=== PATIENT | female | born 1945 | race American Indian/Alaskan Native ===

== ENCOUNTER 2019-03-22 15:38 | Emergency (ER) | payer MEDICARE ==
--- NOTE | 2019-03-22 15:59 | Event Note ---
ED Screening Note ED Screening Note: pt states she has had a pain the LUE that began yesterday states that it hurts to move no edema no erythema no CP no SOB no N/V no injury or fall no numbness or weakness states she has not seen a doctor in 4 years states she has borderline DM and HTN, is supposed to be on medication but is not no allergies to meds non smoker non drinker no drug use This initial assessment/diagnostic orders/clinical plan/treatment(s) is/are subject to change based on patients health status, clinical progression and re- assessment by fellow clinical providers in the ED. Further treatment and workup at subsequent clinical providers discretion. Patient/guardian urged not to elope from the ED as their condition may be serious if not clinically assessed and managed. Initial orders include: CP protocol
[2019-03-22 16:32] LABS: Basophils % (Auto) 0.7 % (0.0-1.8); Eosinophils % (Auto) 0.8 % (0.0-4.3); Hematocrit 40.2 % (30.3-42.9); Hemoglobin 13.7 gm/dl (10.1-14.3); Lymphocytes # (Auto) 2.4 K/mm3 (1.2-5.4); Mean Corpuscular HGB Conc 34 % (30-34); Mean Corpuscular Volume 94 fl (79-97); Monocytes # (Auto) 0.5 K/mm3 (0.0-0.8); Monocytes % (Auto) 9.4 % (0.0-7.3); Platelet Count 184 K/mm3 (140-440); Red Blood Count 4.27 M/mm3 (3.65-5.03); Red Cell Distribution Width 13.9 % (13.2-15.2)
[2019-03-22 16:35] LABS: Alanine Aminotransferase 13 units/L (7-56); Albumin 3.9 g/dL (3.9-5); BUN/Creatinine Ratio 14; Blood Urea Nitrogen 10 mg/dL (7-17); Calcium 9.7 mg/dL (8.4-10.2); Hemolysis Index 15
[2019-03-22 16:41] LABS: INR 0.93 (0.87-1.13)
[2019-03-22 16:42] LABS: Partial Thromboplastin Time 25.1 Sec. (24.2-36.6)
--- NOTE | 2019-03-22 16:45 | XRay Report ---
PROCEDURE: XR CHEST ROUTINE 2V TECHNIQUE: PA and lateral chest radiographs were obtained. HISTORY: Chest Pain COMPARISONS: None. FINDINGS: Heart: Normal. Mediastinum/Vessels: Atheromatous calcifications is of the thoracic aorta. Lungs/Pleural space: Normal. Bony thorax: No acute osseous abnormality. IMPRESSION: No acute cardiopulmonary disease. This document is electronically signed by Britney Mcduffie MD., March 22 2019 04:43:52 PM ET
--- NOTE | 2019-03-22 18:53 | Emergency Department Report ---
Blank Doc - Documentation Documentation: pt placed in fast track 36 with a monitor due to nurse shortage on the main si de, Dr. Tripp is aware, a MD will evaluate pt
[2019-03-22] MEDS ORDERED: ASPIRIN PO ONE (20:24)
[2019-03-22] MEDS ORDERED: DELTASONE PO ONE ×2 (20:24→21:25)
[2019-03-22] MEDS ORDERED: TYLENOL PO ONE (20:24)
[2019-03-22] MEDS ORDERED: CATAPRES PO ONE (20:25)
[2019-03-22 21:17] LABS: Bilirubin,Urine NEG (Negative); Blood,Urine MOD (Negative); Color,Urine Yellow (Yellow); Mucus,Urine 1+ /HPF; Protein,Urine <15 mg/dL mg/dL (Negative); Urobilinogen,Urine < 2.0 mg/dL (<2.0); WBC,Urine < 1.0 /HPF (0.0-6.0)
--- NOTE | 2019-03-22 21:27 | Cat Scan Report ---
PROCEDURE: CT UPPER EXTREM LT WO CON HISTORY: LEFT UPPER EXTREMITY PAIN FINDINGS: Unenhanced CT of the left upper arm was performed and data was reformatted into sagittal and coronal planes. No fracture, malalignment or destructive lesion is seen in the left upper arm. There is glenohumeral osteoarthritis and there is a loose body posterior to the humeral head, likely previously avulsed ost eophyte, axial image 97 approximately 0.7 cm. No muscle abnormality is seen. No soft tissue mass is seen. IMPRESSION: No fracture or malalignment or destructive lesion of the left humerus Glenohumeral osteoarthritis This document is electronically signed by Clifford Virk MD., March 22 2019 09:25:22 PM ET
[2019-03-22 22:41] VITALS: BP 114/65
--- NOTE | 2019-03-22 22:42 | Emergency Department Report ---
ED Extremity Problem HPI - General Chief complaint: Extremity Problem,Nontraumatic Stated complaint: (L) HAND PAIN Time Seen by Provider: 03/22/19 15:57 Source: patient Mode of arrival: Ambulatory Limitations: No Limitations - History of Present Illness Initial comments: Patient is a 74-year-old -[place] female with a history of hypertension but is not on medication, she presents to the ED with complaint of acute onset left shoulder and left upper arm pain for the last 2 days. Patient states that she is unable to perform any activity or motion of the left arm, and that the pain is worse with any hyper extension, abduction or abduction of the left shoulder. Patient denies chest pain, shortness of breath, neck pain, dizziness, headache, back pain, traumatic injury, numbness and tingling or weakness of left arm, abdominal pain, nausea, vomiting, fever or chills and palpitations. MD Complaint: extremity pain (left uper arm and shoulder pain), joint paint (left upper arm and shoulder) -: Sudden, days(s) (2) Location: left, upper extremity (upper arm and shoulder) History of Same: No -: No myalgia, Yes arthralgia, No fever, No associated dyspnea, No associated chest pain Radiation: none Severity scale (0 -10): 8 Quality: aching, sharp, constant Consistency: constant Improves with: rest Worsens with: weight bearing, palpation Associated Symptoms: denies other symptoms, arthralgias. denies: chest pain, shortness of breath, fever, myalgias, rash - Related Data Previous Rx's Medication Instructions Recorded Last Taken Type Lisinopril/Hydrochlorothiazide 1 tab PO QDAY #30 tab 03/22/19 Unknown Rx [Zestoretic 20-12.5 mg] Meloxicam [Mobic] 7.5 mg PO QDAY #30 tablet 03/22/19 Unknown Rx Allergies Allergy/AdvReac Type Severity Reaction Status Date / Time No Known Allergies Allergy Verified 03/22/19 21:22 ED Review of Systems ROS: Stated complaint: (L) HAND PAIN Other details as noted in HPI Comment: All other systems reviewed and negative Constitutional: denies: chills, fever Eyes: denies: eye pain, eye discharge, vision change ENT: denies: ear pain, throat pain Respiratory: denies: cough, shortness of breath, wheezing Cardiovascular: denies: chest pain, palpitations Endocrine: no symptoms reported Gastrointestinal: denies: abdominal pain, nausea, diarrhea Genitourinary: denies: urgency, dysuria, discharge Musculoskeletal: arthralgia (left shoulder and upper arm). denies: back pain, joint swelling Skin: denies: rash, lesions Neurological: denies: headache, weakness, paresthesias Psychiatric: denies: anxiety, depression Hematological/Lymphatic: denies: easy bleeding, easy bruising ED Past Medical Hx - Past Medical History Previous Medical History?: No - Surgical History Past Surgical History?: No - Social History Smoking Status: Never Smoker Substance Use Type: None - Medications Home Medications: Home Medications Medication Instructions Recorded Confirmed Last Taken Type Lisinopril/Hydrochlorothiazide 1 tab PO QDAY #30 tab 03/22/19 Unknown Rx [Zestoretic 20-12.5 mg] Meloxicam [Mobic] 7.5 mg PO QDAY #30 tablet 03/22/19 Unknown Rx ED Physical Exam - General Limitations: No Limitations General appearance: alert, in no apparent distress - Head Head exam: Present: atraumatic, normocephalic, normal inspection - Eye Eye exam: Present: normal appearance, PERRL. Absent: scleral icterus, conjunctival injection, periorbital swelling, periorbital tenderness - ENT ENT exam: Present: normal exam, normal orophraynx, mucous membranes moist, TM's normal bilaterally, normal external ear exam - Neck Neck exam: Present: normal inspection, full ROM. Absent: tenderness - Respiratory Respiratory exam: Present: normal lung sounds bilaterally. Absent: respiratory distress, wheezes, rales, rhonchi, chest wall tenderness, accessory muscle use, decreased breath sounds, prolonged expiratory - Cardiovascular Cardiovascular Exam: Present: regular rate, normal rhythm, normal heart sounds. Absent: bradycardia, tachycardia, irregular rhythm, systolic murmur, diastolic murmur, rubs, gallop - GI/Abdominal GI/Abdominal exam: Present: soft, normal bowel sounds. Absent: tenderness, hyperactive bowel sounds - Rectal Rectal exam: Present: deferred - Extremities Exam Extremities exam: Present: normal inspection, tenderness (left shoulder and upper arm), normal capillary refill. Absent: full ROM (limited ROM of left shoulder and upper arm due to pain) - Back Exam Back exam: Present: normal inspection, full ROM. Absent: tenderness, CVA tenderness (R), CVA tenderness (L), muscle spasm, paraspinal tenderness, jaguar tebral tenderness - Neurological Exam Neurological exam: Present: alert, oriented X3, CN II-XII intact, normal gait, reflexes normal - Psychiatric Psychiatric exam: Present: normal affect, normal mood - Skin Skin exam: Present: warm, dry, intact, normal color. Absent: rash ED Course Vital Signs 03/22/19 03/22/19 03/22/19 15:58 18:30 19:58 Temperature 98.1 F 98.3 F Pulse Rate 94 H 90 84 Respiratory 20 18 19 Rate Blood Pressure 221/101 208/96 206/84 [Left] O2 Sat by Pulse 98 98 96 Oximetry - Reevaluation(s) Reevaluation #1: 03/22/19 22:43 Patient is alert and oriented x 3 and is in no acute distress but hypertensive in triage. Labs were drawn, EKG performed and patient treated for hypertension and pain. EKG shows normal sinus rhythm with a heart rate of [address] and T-wave abnormalities or pathological Q waves. Laboratory results were reviewed and are unremarkable including the initial troponin and second troponin levels. Left upper extremity CT scan without contrast shows no acute fractures or subluxations but chronic osteoarthritis in the glenohumeral joint. On reevaluation, patient's blood pressure improved significantly with treatment and patient's prognosis was well controlled. Based on the patient's age and risk factors for coronary artery disease, patient was offered admission to the hospital for observation and possible stress test while in the hospital but the patient refused and opted to sign out AGAINST MEDICAL ADVICE. Patient was given prescriptions for hypertension and given a referral to a local clinic for follow-up or high blood pressure issues. Patient advised to return to the ED immediately if symptoms get worse. ED Medical Decision Making - Lab Data Result diagrams: 03/22/19 16:01 03/22/19 16:01 - Radiology Data Radiology results: report reviewed, image reviewed No acute fractures but chronic glenohumeral joint osteoarthritis. - Medical Decision Making Patient is alert and oriented x 3 and is in no acute distress but hypertensive in triage. Labs were drawn, EKG performed and patient treated for hypertension and pain. EKG shows normal sinus rhythm with a heart rate of [address] and T-wave abnormalities or pathological Q waves. Laboratory results were reviewed and are unremarkable including the initial troponin and second troponin levels. Left upper extremity CT scan without contrast shows no acute fractures or subluxations but chronic osteoarthritis in the glenohumeral joint. On reevaluation, patient's blood pressure improved significantly with treatment, to 114/65 and patient's pain was well controlled. Based on the patient's age and risk factors for coronary artery disease, patient was offered admission to the hospital for observation and possible stress test while in the hospital but the patient refused and opted to sign out AGAINST MEDICAL ADVICE. Patient was given prescriptions for hypertension and given a referral to a local clinic for follow-up or high blood pressure issues. Patient advised to return to the ED immediately if symptoms get worse. - Differential Diagnosis Left shoulder pain, chronic osteoarthritis, Uncontrolled HTN, CAD Critical care attestation.: If time is entered above; I have spent that time in minutes in the direct care of this critically ill patient, excluding procedure time. ED Disposition Clinical Impression: Chronic osteoarthritis, Uncontrolled stage 2 hypertension Pain in left shoulder Qualifiers: Chronicity: acute Qualified Code(s): M25.512 - Pain in left shoulder Disposition: DC- LEFT AGAINST MED ADVICE Is pt being admited?: No Does the pt Need Aspirin: No Condition: Stable Instructions: Hypertension (ED), Osteoarthritis (ED) Additional Instructions: Take medications with food, drink plenty of fluids and follow up with [facility] for reevaluation. Return to the ED immediately if symptoms get worse. Prescriptions: Meloxicam [Mobic] 7.5 mg PO QDAY #30 tablet Lisinopril/Hydrochlorothiazide [Zestoretic 20-12.5 mg] 1 tab PO QDAY #30 tab Referrals: [facility] [Outside] - 3-5 Days Time of Disposition: 22:53 Print Language: POLISH
== END 2019-03-22 23:06 | disposition left against medical advice (07) ==
LOC: ED 15:38
DX: M19.012 Primary osteoarthritis, left shoulder (principal); I10 Essential (primary) hypertension
CPT/HCPCS: 36415; 71046; 73200; 80053; 81001; 84443; 84484; 85025; 85610; 85730; 93005; 93010; 99285; J7512